=== PATIENT | female | born 2000 | race Caucasian/White ===

== ENCOUNTER 2024-02-07 17:10 | Emergency (ER) | payer SELFPAY ==
[~2024-02-07] VITALS: Ht 157.5 cm; Wt 90.7 kg
[2024-02-07 17:29] VITALS: O2SAT 100
[2024-02-07 21:30] VITALS: BP 127/68; PULSE 89; RESP 18; TEMP 36.94740; O2SAT 100
== END 2024-02-07 21:30 | disposition home or self-care (01) ==
LOC: ER 17:10
DX: R68.89 Other general symptoms and signs (principal); R10.2 Pelvic and perineal pain
CPT/HCPCS: 36415; 76830; 76856; 81025; 84702; 99284